=== PATIENT | female | born 1940 | race Caucasian/White ===

== ENCOUNTER → 2016-11-03 | Outpatient (CLI) | payer MEDICARE ==
[~2016-11-03] MED LIST: ACET-76 PO; ANAS1TAB PO; CALC-79 PO; CARB15DR EACHEYE; LATA2.5D3 EACHEYE; MINE3.5O EACHEYE; MULT-516 PO; TIMO5DRO5 EACHEYE
== END | disposition home or self-care (01) ==
LOC: STAR 14:08
PROVIDERS: ATTEND Urology
DX: Z01.818 Encounter for other preprocedural examination (principal); C67.4 Malignant neoplasm of posterior wall of bladder; C50.112 Malignant neoplasm of central portion of left female breast; Z85.41 Personal history of malignant neoplasm of cervix uteri
CPT/HCPCS: 81001; 87086; 93005

== ENCOUNTER 2016-11-10 10:45 | Day surgery (SDC) | payer MEDICARE ==
[~2016-11-10] VITALS: Ht 154.9 cm; Wt 76.0 kg
[2016-11-10] MEDS ORDERED: LACTATED RINGERS 1,000 ML IV SCH (11:16)
[2016-11-10] MEDS ORDERED: LIDOCAINE 1%, 2ML SQ PRN (11:30)
[2016-11-10] MEDS ORDERED: FENTANYL PF 250 MCG/5ML ONE (13:43)
[2016-11-10] MEDS ORDERED: SODIUM CHLORIDE 0.9% INTVESIC ONE (14:00)
[2016-11-10] MEDS ORDERED: hydrALAzine 20 MG/ML, 1ML IV PRN (14:00)
[2016-11-10] MEDS ORDERED: MITOMYCIN INTVESIC ONE (14:00)
[2016-11-10] MEDS ORDERED: PROMETHAZINE 25 MG/ML, 1ML IV PRN (14:00)
[2016-11-10] MEDS ORDERED: ONDANSETRON 2MG/ML, 2ML IVPush PRN (14:00)
[2016-11-10] MEDS ORDERED: FENTANYL PF 100 MCG/2ML IV PRN (14:00)
[2016-11-10] MEDS ORDERED: LABETALOL 5MG/ML, 20ML IV PRN (14:00)
[2016-11-10] MEDS ORDERED: HYDROmorphone 1 MG/ML, 1ML IV PRN (14:00)
[2016-11-10] MEDS ORDERED: FENTANYL PF 100 MCG/2ML ONE (15:20)
[2016-11-10] MEDS ORDERED: PROPOFOL 10 MG/ML, 20ML ONE (15:39)
[2016-11-10] MEDS ORDERED: GLYCOPYRROLATE 0.2MG/1ML ONE (15:39)
[2016-11-10] MEDS ORDERED: ONDANSETRON 2MG/ML, 2ML ONE ×2 (15:39→16:21)
[2016-11-10] MEDS ORDERED: NEOSTIGMINE 1 MG/ML, 10ML ONE (15:39)
[2016-11-10] MEDS ORDERED: ROCURONIUM 10 MG/ML ONE (15:39)
== END 2016-11-10 19:15 ==
LOC: OUT 10:45
PROVIDERS: ATTEND Urology
DX: C67.4 Malignant neoplasm of posterior wall of bladder (principal); N32.89 Other specified disorders of bladder; Z88.5 Allergy status to narcotic agent; Z88.0 Allergy status to penicillin
CPT/HCPCS: 52224; 88305; 88341; 88342; J2405; J2704; J2710; J3010; J3490; J7120; J9280; G0461

== ENCOUNTER → 2017-01-07 | Outpatient (CLI) | payer MEDICARE | END | disposition home or self-care (01) | LOC: STAR 12:57 | PROVIDERS: ATTEND Urology | DX: Z02.9 Encounter for administrative examinations, unspecified (principal) ==

== ENCOUNTER 2017-01-15 14:58 | Day surgery (SDC) | payer MEDICARE ==
[~2017-01-15] VITALS: Ht 157.5 cm; Wt 74.6 kg
[2017-01-15 15:25] VITALS: BP 155/100
[2017-01-15] MEDS ORDERED: LACTATED RINGERS 1,000 ML IV SCH (15:28)
[2017-01-15] MEDS ORDERED: MIDAZOLAM 1 MG/ML, 2ML ONE (17:28)
[2017-01-15] MEDS ORDERED: FENTANYL PF 100 MCG/2ML ONE (17:29)
[2017-01-15 18:21] LABS: PATH.CAST-FLAG NOT PRESENT; SPERM-FLAG NOT PRESENT; SRC-FLAG NOT PRESENT; XTAL-FLAG NOT PRESENT; YLC-FLAG NOT PRESENT
[2017-01-15] MEDS ORDERED: ONDANSETRON 2MG/ML, 2ML ONE (18:29)
[2017-01-15] MEDS ORDERED: METOCLOPRAMIDE 5 MG/ML, 2ML ONE (18:29)
[2017-01-15] MEDS ORDERED: PROPOFOL 10 MG/ML, 20ML ONE (18:29)
[2017-01-15] MEDS ORDERED: DEXAMETHASONE 4 MG/ML, 1ML ONE (18:29)
[2017-01-15] MEDS ORDERED: hydrALAzine 20 MG/ML, 1ML IV PRN (19:00)
[2017-01-15] MEDS ORDERED: ACETAMINOPHEN 325 MG TABLET PO PRN (19:00)
[2017-01-15] MEDS ORDERED: MIDAZOLAM 1 MG/ML, 2ML IV PRN (19:00)
[2017-01-15] MEDS ORDERED: LABETALOL 5MG/ML, 20ML IV PRN (19:00)
[2017-01-15] MEDS ORDERED: ONDANSETRON 2MG/ML, 2ML IVPush PRN (19:00)
[2017-01-15] MEDS ORDERED: ALBUTEROL/IPRATROPIUM 2.5MG/0.5MG, 3 ML NPPB PRN (19:00)
[2017-01-15] MEDS ORDERED: MEPERIDINE/PF 25MG/0.5ML IVPush PRN (19:00)
[2017-01-15] MEDS ORDERED: HYDROmorphone 1 MG/ML, 1ML IV PRN (19:00)
[2017-01-15] MEDS ORDERED: FENTANYL PF 100 MCG/2ML IV PRN (19:00)
[2017-01-15] MEDS ORDERED: PROMETHAZINE 25 MG/ML, 1ML IV PRN (19:00)
[2017-01-15] MEDS ORDERED: OPIUM/BELLADONNA SUPP.RECT 16.2-30 MG ONE (19:26)
[2017-01-15] MEDS ORDERED: CEFU250S PO (21:54)
[2017-01-15] MEDS ORDERED: OXYB5TAB33 PO (21:55)
[2017-01-15] MEDS ORDERED: PHEN100T90 PO (21:56)
== END 2017-01-15 23:00 | disposition home or self-care (01) ==
LOC: OR 14:58 → 4NOR 21:00 → OR 23:00
PROVIDERS: ATTEND Urology
DX: D09.0 Carcinoma in situ of bladder (principal); N30.20 Other chronic cystitis without hematuria; Z88.5 Allergy status to narcotic agent; Z88.0 Allergy status to penicillin; Z88.8 Allergy status to other drugs, medicaments and biological substances
CPT/HCPCS: 52235; 81001; 87086; 88305; C1769; J1100; J2250; J2405; J2704; J2765; J3010; J7120

== ENCOUNTER → 2017-04-21 | Outpatient (CLI) | payer MEDICARE ==
[~2017-04-21] MED LIST changes: +ACET500T71 PO; +CEFU250S PO; +CELE200C PO; +GABA300C10 PO; +OXYB5TAB33 PO; +PHEN100T90 PO
== END | disposition home or self-care (01) ==
LOC: WOUND 13:23
PROVIDERS: ATTEND Internal Medicine
DX: C67.4 Malignant neoplasm of posterior wall of bladder (principal); R31.9 Hematuria, unspecified; I25.10 Atherosclerotic heart disease of native coronary artery without angina pectoris; K21.9 Gastro-esophageal reflux disease without esophagitis; M19.90 Unspecified osteoarthritis, unspecified site; E11.65 Type 2 diabetes mellitus with hyperglycemia; Z85.3 Personal history of malignant neoplasm of breast; Z85.42 Personal history of malignant neoplasm of other parts of uterus
CPT/HCPCS: G0463; WOU0463

== ENCOUNTER 2017-04-22 05:35 | Inpatient (IN) | payer MEDICARE ==
[~2017-04-22] VITALS: Ht 154.9 cm; Wt 77.2 kg
[~2017-04-22 05:35] MED LIST changes: -ACET500T71 PO; -CELE200C PO; -GABA300C10 PO
[2017-04-22 06:03] VITALS: BP 165/103
[2017-04-22] MEDS ORDERED: LACTATED RINGERS 1,000 ML IV SCH (06:07)
[2017-04-22] MEDS ORDERED: THROMBIN 5,000 UNIT VIAL TP ONE (06:57)
[2017-04-22] MEDS ORDERED: EPINEPHRINE 1 MG/ML, 1ML ONE (06:57)
[2017-04-22] MEDS ORDERED: BUPIVACAINE/PF 0.25% ONE (06:57)
[2017-04-22] MEDS ORDERED: FENTANYL PF 250 MCG/5ML ONE ×3 (07:03→13:48)
[2017-04-22] MEDS ORDERED: MIDAZOLAM 1 MG/ML, 2ML ONE (07:03)
[2017-04-22 07:08] LABS: BASOPHILS # (AUTO) 0.01 x10^3/uL (0-0.1); BASOPHILS % (AUTO) 0 % (0-1); EOSINOPHILS # (AUTO) 0.05 x10^3/uL (0-0.4); EOSINOPHILS % (AUTO) 1 % (1-7); LYMPHOCYTES # (AUTO) 1.55 x10^3/uL (1-3.4); LYMPHOCYTES % (AUTO) 19 % (22-44); MD NO; MEAN CORPUSCULAR HEMOGLOBIN 30.1 pg (27.0-34.8); MEAN CORPUSCULAR HGB CONC 33.5 g/dL (32.4-35.8); MEAN CORPUSCULAR VOLUME 89.9 fL (80-100); MEAN PLATELET VOLUME 6.9 fL (7.4-10.4); MONOCYTES # (AUTO) 0.69 x10^3/uL (0.2-0.8); MONOCYTES % (AUTO) 9 % (2-9); NEUTROPHILS # (AUTO) 5.88 x10^3/uL (1.8-6.8); NEUTROPHILS % (AUTO) 72 % (42-75); PLATELET COUNT 293 x10^3/uL (130-400); RED CELL DISTRIBUTION WIDTH 14.7 % (9.6-15.2)
[2017-04-22 07:17] LABS: ALANINE AMINOTRANSFERASE 35 U/L (12-78); ALBUMIN 3.6 g/dL (3.4-5.0); ANION GAP 9 mmol/L (5-15); CALCIUM 9.7 mg/dL (8.5-10.1); CHLORIDE 101 mmol/L (98-107)
[2017-04-22 07:19] LABS: ALKALINE PHOSPHATASE 125 U/L (45-117); BILIRUBIN,TOTAL 0.7 mg/dL (0.2-1.0); TOTAL PROTEIN 7.1 g/dL (6.4-8.2)
[2017-04-22 07:20] LABS: MICROSCOPIC INDICATED
[2017-04-22] MEDS ORDERED: PHENYLEPHRINE 10 MG/ML ONE (07:46)
[2017-04-22] MEDS ORDERED: CEFOTETAN PMX 2GM/50ML 50 ML ONE (08:31)
[2017-04-22] MEDS ORDERED: DEXAMETHASONE 4 MG/ML, 1ML ONE (09:37)
[2017-04-22] MEDS ORDERED: GLYCOPYRROLATE 0.2MG/1ML, 5ML ONE (09:37)
[2017-04-22] MEDS ORDERED: ROCURONIUM 10 MG/ML,10ML ONE (09:37)
[2017-04-22] MEDS ORDERED: LABETALOL 5MG/ML, 20ML ONE ×2 (09:37)
[2017-04-22] MEDS ORDERED: PROPOFOL 10 MG/ML, 20ML ONE (09:37)
[2017-04-22] MEDS ORDERED: hydrALAzine 20 MG/ML, 1ML ONE (09:37)
[2017-04-22] MEDS ORDERED: ONDANSETRON 2MG/ML, 2ML ONE ×2 (09:37→23:18)
[2017-04-22] MEDS ORDERED: NEOSTIGMINE 1 MG/ML, 10ML ONE (09:37)
[2017-04-22] MEDS ORDERED: HEPARIN 5,000 UNITS/ML, 1ML ONE (15:18)
[2017-04-22] MEDS ORDERED: CEFOTETAN PMX 1GM/50ML 50 ML ONE (15:23)
[2017-04-22] MEDS ORDERED: DIAZEPAM 5 MG/ML, 2ML IVPush PRN (16:00)
[2017-04-22] MEDS ORDERED: OXYcodone 5 MG/5 ML ORAL.SOL UDC PO PRN (16:00)
[2017-04-22] MEDS ORDERED: MIDAZOLAM 1 MG/ML, 2ML IV PRN (16:00)
[2017-04-22] MEDS ORDERED: LABETALOL 5MG/ML, 20ML IV PRN (16:00)
[2017-04-22] MEDS ORDERED: FENTANYL PF 100 MCG/2ML IV PRN (16:00)
[2017-04-22] MEDS ORDERED: hydrALAzine 20 MG/ML, 1ML IV PRN (16:00)
[2017-04-22] MEDS ORDERED: HYDROmorphone 1 MG/ML, 1ML IV PRN (16:00)
[2017-04-22] MEDS ORDERED: LORazepam 2 MG/ML, 1ML IVPush PRN (16:00)
[2017-04-22] MEDS ORDERED: METOCLOPRAMIDE 5 MG/ML, 2ML IV PRN (16:00)
[2017-04-22] MEDS ORDERED: MEPERIDINE/PF 25MG/0.5ML IVPush PRN (16:00)
[2017-04-22] MEDS ORDERED: ALBUTEROL/IPRATROPIUM 2.5MG/0.5MG, 3 ML NPPB PRN (16:00)
[2017-04-22] MEDS ORDERED: ONDANSETRON 2MG/ML, 2ML IVPush PRN (16:00)
[2017-04-22] MEDS ORDERED: PROMETHAZINE 25 MG/ML, 1ML IV PRN (16:00)
[2017-04-22] MEDS ORDERED: ACETAMINOPHEN 325 MG TABLET PO PRN (16:00)
[2017-04-22] MEDS ORDERED: FUROSEMIDE 20 MG/2 ML ONE (17:10)
[2017-04-22] MEDS: HEPARIN 5,000 UNITS/ML, 1ML SQ SCH (20:00)
[2017-04-22] MEDS ORDERED: HYDROmorphone PCA 30 MG/30 ML ONE (20:45)
[2017-04-22] MEDS ORDERED: HYDROmorphone PCA 30 MG/30 ML IV PRN (21:00)
[2017-04-22 21:38] LABS: ALBUMIN 3.4 g/dL (3.4-5.0); ANION GAP 10 mmol/L (5-15); CALCIUM 8.1 mg/dL (8.5-10.1); CHLORIDE 111 mmol/L (98-107); CREATININE 1.38 mg/dL (0.55-1.02)
[2017-04-22] MEDS ORDERED: PROMETHAZINE 25 MG/ML, 1ML IM PRN (22:00)
[2017-04-22] MEDS ORDERED: INSULIN ASPART 100 UNITS/ML, 3ML PEN LOW DOSE SS SQ-INSULIN SCH (22:00)
[2017-04-22] MEDS ORDERED: ONDANSETRON 4 MG TABLET PO PRN (22:00)
[2017-04-22] MEDS ORDERED: CEFOXITIN PMX 1GM/50ML 50 ML IVPB SCH (22:00)
[2017-04-22] MEDS: ACETAMINOPHEN 500 MG TABLET PO SCH (22:00)
[2017-04-22] MEDS: INSULIN REGULAR 100 UNITS/ML, 3ML VIAL SQ-INSULIN SCH (22:00)
[2017-04-22] MEDS: LACTATED RINGERS 1,000 ML IV SCH (22:07)
[2017-04-22] MEDS: CEFOXITIN 1,000 MG in DEXTROSE 5% 50 ML IVPB SCH (22:07)
[2017-04-22] MEDS: ONDANSETRON 2MG/ML, 2ML IVPush PRN (23:20)
[2017-04-23] MEDS ORDERED: hydrALAzine 20 MG/ML, 1ML ONE (00:02)
[2017-04-23] MEDS: INSULIN REGULAR 100 UNITS/ML, 3ML VIAL SQ-INSULIN SCH ×4 (04:00→22:00)
[2017-04-23] MEDS: ACETAMINOPHEN 500 MG TABLET PO SCH ×4 (04:30→23:03)
[2017-04-23] MEDS: HEPARIN 5,000 UNITS/ML, 1ML SQ SCH ×4 (04:31→23:00)
[2017-04-23] MEDS: LACTATED RINGERS 1,000 ML IV SCH ×2 (04:37→23:03)
[2017-04-23] MEDS: CEFOXITIN 1,000 MG in DEXTROSE 5% 50 ML IVPB SCH ×3 (06:12→23:22)
[2017-04-23 07:19] LABS: ALANINE AMINOTRANSFERASE 24 U/L (12-78); ANION GAP 10 mmol/L (5-15); CALCIUM 8.3 mg/dL (8.5-10.1); CHLORIDE 110 mmol/L (98-107); CREATININE 1.32 mg/dL (0.55-1.02)
[2017-04-23 07:21] LABS: ALKALINE PHOSPHATASE 81 U/L (45-117); BILIRUBIN,TOTAL 0.4 mg/dL (0.2-1.0); TOTAL PROTEIN 5.9 g/dL (6.4-8.2)
[2017-04-23 07:28] LABS: HEMOGRAM NOTE RECHECKED; MEAN CORPUSCULAR HEMOGLOBIN 30.1 pg (27.0-34.8); MEAN CORPUSCULAR HGB CONC 33.5 g/dL (32.4-35.8); MEAN CORPUSCULAR VOLUME 89.9 fL (80-100); PLATELET COUNT 240 x10^3/uL (130-400); RED BLOOD COUNT 3.61 x10^6/uL (3.82-5.3)
[2017-04-23 07:58] LABS: INTERNATIONAL NORMALIZED RATIO 1.09 (0.93-1.1); PROTHROMBIN TIME 11.2 Seconds (9.6-11.5)
[2017-04-23 08:55] LABS: MD YES
[2017-04-23 08:56] LABS: BAND#(MANUAL) 0.69 x10^3/uL; BANDS%(MANUAL) 5 % (0-7); LYMPH#(MANUAL) 0.69 x10^3/uL (1-3.4); LYMPHS% (MANUAL) 5 % (22-44); MONOS#(MANUAL) 0.55 x10^3/uL (0.3-2.7); MONOS% (MANUAL) 4 % (2-9); SEG#(MANUAL) 11.78 x10^3/uL (1.8-6.8); SEGS% (MANUAL) 86 % (42-75)
[2017-04-23] MEDS: ONDANSETRON 2MG/ML, 2ML IVPush PRN ×3 (08:56→23:22)
[2017-04-23 08:57] LABS: <PLATELET ESTIMATE> ADEQUATE; <PLT MORPHOLOGY> NORMAL PLT MORPH; <RBC MORPHOLOGY> NORMAL
[2017-04-23] MEDS ORDERED: TIMOLOL OPHTH 0.25%, 5ML OP SCH (09:00)
[2017-04-23] MEDS ORDERED: MAGNESIUM SULFATE PMX 4GM/100M 100 ML IVPB ONE (11:00)
[2017-04-23 12:23] LABS: TROPONIN I 0.043 ng/mL (0.000-0.045)
[2017-04-23] MEDS ORDERED: SODIUM CHLORIDE 0.9%, 500ML IVBOLUS ONE (14:00)
[2017-04-23] MEDS ORDERED: HYDROmorphone 2 MG/ML, 1ML IVPush PRN (15:00)
[2017-04-23 20:10] VITALS: BP 130/79
[2017-04-23] MEDS: OCULAR LUBRICANT OPHTH OINT 3.5 GM OP SCH (21:00)
[2017-04-23] MEDS: LATANOPROST OPHTH 0.005%, 2.5ML OP SCH (21:00)
[2017-04-23] MEDS ORDERED: LACTATED RINGERS 1,000 ML IV SCH (22:00)
[2017-04-24 01:46] VITALS: BP 143/83
[2017-04-24] MEDS: INSULIN REGULAR 100 UNITS/ML, 3ML VIAL SQ-INSULIN SCH ×4 (04:00→21:21)
[2017-04-24 05:38] LABS: BASOPHILS # (AUTO) 0.04 x10^3/uL (0-0.1); BASOPHILS % (AUTO) 0 % (0-1); EOSINOPHILS # (AUTO) 0.01 x10^3/uL (0-0.4); EOSINOPHILS % (AUTO) 0 % (1-7); LYMPHOCYTES # (AUTO) 0.97 x10^3/uL (1-3.4); LYMPHOCYTES % (AUTO) 8 % (22-44); MD NO; MEAN CORPUSCULAR HEMOGLOBIN 30.6 pg (27.0-34.8); MEAN CORPUSCULAR HGB CONC 33.8 g/dL (32.4-35.8); MEAN CORPUSCULAR VOLUME 90.5 fL (80-100); MEAN PLATELET VOLUME 7.3 fL (7.4-10.4); MONOCYTES # (AUTO) 0.98 x10^3/uL (0.2-0.8); MONOCYTES % (AUTO) 8 % (2-9); NEUTROPHILS # (AUTO) 10.73 x10^3/uL (1.8-6.8); NEUTROPHILS % (AUTO) 84 % (42-75); PLATELET COUNT 210 x10^3/uL (130-400); RED BLOOD COUNT 3.32 x10^6/uL (3.82-5.3); RED CELL DISTRIBUTION WIDTH 15.8 % (9.6-15.2)
[2017-04-24 05:48] LABS: ALBUMIN 2.6 g/dL (3.4-5.0); ANION GAP 5 mmol/L (5-15); CALCIUM 8.3 mg/dL (8.5-10.1); CHLORIDE 111 mmol/L (98-107)
[2017-04-24 05:51] LABS: ALANINE AMINOTRANSFERASE 19 U/L (12-78); ALKALINE PHOSPHATASE 71 U/L (45-117); BILIRUBIN,TOTAL 0.5 mg/dL (0.2-1.0); CREATININE 0.61 mg/dL (0.55-1.02); TOTAL PROTEIN 5.4 g/dL (6.4-8.2)
[2017-04-24 05:52] LABS: HEMOGLOBIN A1C 6.1 % (4.2-6.3)
[2017-04-24] MEDS: HEPARIN 5,000 UNITS/ML, 1ML SQ SCH ×3 (05:57→21:20)
[2017-04-24] MEDS: CEFOXITIN 1,000 MG in DEXTROSE 5% 50 ML IVPB SCH (05:57)
[2017-04-24] MEDS: ACETAMINOPHEN 500 MG TABLET PO SCH ×3 (05:57→17:32)
[2017-04-24] MEDS: LACTATED RINGERS 1,000 ML IV SCH ×3 (05:58→17:32)
[2017-04-24 07:41] VITALS: BP 147/88
[2017-04-24] MEDS: PANTOPRAZOLE 40 MG IV IVPush SCH (09:52)
[2017-04-24] MEDS: TIMOLOL OPHTH 0.5%, 5ML EACHEYE SCH (09:52)
[2017-04-24 13:34] VITALS: BP 160/94
[2017-04-24] MEDS: ONDANSETRON 2MG/ML, 2ML IVPush PRN (16:47)
[2017-04-24 18:09] LABS: TROPONIN I 0.028 ng/mL (0.000-0.045)
[2017-04-24] MEDS ORDERED: hydrALAzine 20 MG/ML, 1ML IV PRN (21:00)
[2017-04-24 21:01] VITALS: BP 186/116
[2017-04-24] MEDS: LATANOPROST OPHTH 0.005%, 2.5ML OP SCH (21:05)
[2017-04-24] MEDS: OCULAR LUBRICANT OPHTH OINT 3.5 GM OP SCH (21:05)
[2017-04-24 21:24] VITALS: BP 159/82
[2017-04-24] MEDS ORDERED: LACTATED RINGERS 1,000 ML IV SCH (22:00)
[2017-04-25] MEDS: ONDANSETRON 2MG/ML, 2ML IVPush PRN (00:09)
[2017-04-25] MEDS: ACETAMINOPHEN 500 MG TABLET PO SCH ×4 (00:09→17:53)
[2017-04-25 01:32] VITALS: BP 152/91
[2017-04-25] MEDS: INSULIN REGULAR 100 UNITS/ML, 3ML VIAL SQ-INSULIN SCH ×4 (04:00→21:38)
[2017-04-25 04:59] LABS: BASOPHILS # (AUTO) 0.03 x10^3/uL (0-0.1); BASOPHILS % (AUTO) 0 % (0-1); EOSINOPHILS # (AUTO) 0.03 x10^3/uL (0-0.4); EOSINOPHILS % (AUTO) 0 % (1-7); LYMPHOCYTES # (AUTO) 1.08 x10^3/uL (1-3.4); LYMPHOCYTES % (AUTO) 9 % (22-44); MD NO; MEAN CORPUSCULAR HEMOGLOBIN 30.4 pg (27.0-34.8); MEAN CORPUSCULAR HGB CONC 33.4 g/dL (32.4-35.8); MEAN PLATELET VOLUME 7.1 fL (7.4-10.4); MONOCYTES # (AUTO) 0.53 x10^3/uL (0.2-0.8); MONOCYTES % (AUTO) 4 % (2-9); NEUTROPHILS % (AUTO) 86 % (42-75); PLATELET COUNT 225 x10^3/uL (130-400); RED BLOOD COUNT 3.63 x10^6/uL (3.82-5.3); RED CELL DISTRIBUTION WIDTH 15.4 % (9.6-15.2)
[2017-04-25 05:09] LABS: ANION GAP 5 mmol/L (5-15); CALCIUM 8.6 mg/dL (8.5-10.1); CHLORIDE 110 mmol/L (98-107)
[2017-04-25 05:11] LABS: CREATININE 0.41 mg/dL (0.55-1.02)
[2017-04-25] MEDS: HEPARIN 5,000 UNITS/ML, 1ML SQ SCH ×3 (06:17→21:33)
[2017-04-25] MEDS: D5%-0.45NACL+KCL 20MEQ 1,000 ML IV SCH ×2 (09:02→21:33)
[2017-04-25] MEDS: METOCLOPRAMIDE 5 MG/ML, 2ML IVPush SCH ×2 (09:02→16:30)
[2017-04-25] MEDS: PANTOPRAZOLE 40 MG IV IVPush SCH (09:02)
[2017-04-25] MEDS: TIMOLOL OPHTH 0.5%, 5ML EACHEYE SCH (09:03)
[2017-04-25 09:17] VITALS: BP 148/86
[2017-04-25 10:42] VITALS: BP 144/86
[2017-04-25 16:07] VITALS: BP 138/85
[2017-04-25 19:52] VITALS: BP 119/75
[2017-04-25] MEDS: LATANOPROST OPHTH 0.005%, 2.5ML OP SCH ×2 (21:33→21:41)
[2017-04-25] MEDS: OCULAR LUBRICANT OPHTH OINT 3.5 GM OP SCH (21:33)
[2017-04-25] MEDS: GABAPENTIN 300 MG CAPSULE PO SCH (21:33)
[2017-04-26] MEDS: ACETAMINOPHEN 500 MG TABLET PO SCH ×4 (01:06→17:42)
[2017-04-26] MEDS: METOCLOPRAMIDE 5 MG/ML, 2ML IVPush SCH ×3 (01:07→16:15)
[2017-04-26] MEDS: INSULIN REGULAR 100 UNITS/ML, 3ML VIAL SQ-INSULIN SCH ×4 (04:00→22:00)
[2017-04-26 04:20] VITALS: BP 110/73
[2017-04-26 06:08] LABS: CHLORIDE 111 mmol/L (98-107)
[2017-04-26 06:15] LABS: ALANINE AMINOTRANSFERASE 15 U/L (12-78); ALKALINE PHOSPHATASE 66 U/L (45-117); ANION GAP 4 mmol/L (5-15); BILIRUBIN,TOTAL 0.7 mg/dL (0.2-1.0); CALCIUM 8.6 mg/dL (8.5-10.1); CREATININE 0.44 mg/dL (0.55-1.02); TOTAL PROTEIN 4.8 g/dL (6.4-8.2)
[2017-04-26 06:28] LABS: BASOPHILS # (AUTO) 0.03 x10^3/uL (0-0.1); BASOPHILS % (AUTO) 0 % (0-1); EOSINOPHILS # (AUTO) 0.43 x10^3/uL (0-0.4); EOSINOPHILS % (AUTO) 6 % (1-7); LYMPHOCYTES # (AUTO) 1.01 x10^3/uL (1-3.4); LYMPHOCYTES % (AUTO) 13 % (22-44); MD NO; MEAN CORPUSCULAR HGB CONC 33.1 g/dL (32.4-35.8); MEAN CORPUSCULAR VOLUME 90.6 fL (80-100); MEAN PLATELET VOLUME 7.4 fL (7.4-10.4); MONOCYTES # (AUTO) 0.62 x10^3/uL (0.2-0.8); MONOCYTES % (AUTO) 8 % (2-9); NEUTROPHILS # (AUTO) 5.73 x10^3/uL (1.8-6.8); NEUTROPHILS % (AUTO) 73 % (42-75); PLATELET COUNT 231 x10^3/uL (130-400); RED BLOOD COUNT 3.17 x10^6/uL (3.82-5.3); RED CELL DISTRIBUTION WIDTH 15.5 % (9.6-15.2)
[2017-04-26] MEDS: HEPARIN 5,000 UNITS/ML, 1ML SQ SCH ×3 (06:29→21:56)
[2017-04-26] MEDS: TIMOLOL OPHTH 0.5%, 5ML EACHEYE SCH (08:34)
[2017-04-26] MEDS: PANTOPRAZOLE 40 MG IV IVPush SCH (08:35)
[2017-04-26] MEDS: D5%-0.45NACL+KCL 20MEQ 1,000 ML IV SCH (09:49)
[2017-04-26 19:56] VITALS: BP 145/83
[2017-04-26] MEDS: LATANOPROST OPHTH 0.005%, 2.5ML OP SCH (21:55)
[2017-04-26] MEDS: GABAPENTIN 300 MG CAPSULE PO SCH (21:56)
[2017-04-26] MEDS: OCULAR LUBRICANT OPHTH OINT 3.5 GM OP SCH (21:57)
[2017-04-27] MEDS: ARTIFICIAL TEARS OPHTH SOLN 15ML OP PRN ×2 (00:23→22:14)
[2017-04-27] MEDS: ACETAMINOPHEN 500 MG TABLET PO SCH ×4 (00:23→22:14)
[2017-04-27] MEDS: METOCLOPRAMIDE 5 MG/ML, 2ML IVPush SCH ×3 (00:24→17:49)
[2017-04-27] MEDS: D5%-0.45NACL+KCL 20MEQ 1,000 ML IV SCH ×2 (00:48→15:54)
[2017-04-27] MEDS: INSULIN REGULAR 100 UNITS/ML, 3ML VIAL SQ-INSULIN SCH ×4 (04:20→22:00)
[2017-04-27 05:03] LABS: BASOPHILS # (AUTO) 0.03 x10^3/uL (0-0.1); BASOPHILS % (AUTO) 0 % (0-1); EOSINOPHILS # (AUTO) 0.38 x10^3/uL (0-0.4); EOSINOPHILS % (AUTO) 5 % (1-7); LYMPHOCYTES # (AUTO) 1.04 x10^3/uL (1-3.4); LYMPHOCYTES % (AUTO) 14 % (22-44); MD NO; MEAN CORPUSCULAR HEMOGLOBIN 30.9 pg (27.0-34.8); MEAN CORPUSCULAR VOLUME 90.8 fL (80-100); MEAN PLATELET VOLUME 7.4 fL (7.4-10.4); MONOCYTES # (AUTO) 0.66 x10^3/uL (0.2-0.8); MONOCYTES % (AUTO) 9 % (2-9); NEUTROPHILS # (AUTO) 5.27 x10^3/uL (1.8-6.8); NEUTROPHILS % (AUTO) 72 % (42-75); PLATELET COUNT 246 x10^3/uL (130-400); RED BLOOD COUNT 3.35 x10^6/uL (3.82-5.3); RED CELL DISTRIBUTION WIDTH 15.6 % (9.6-15.2)
[2017-04-27 05:04] LABS: ANION GAP 6 mmol/L (5-15); CALCIUM 8.1 mg/dL (8.5-10.1); CHLORIDE 111 mmol/L (98-107); CREATININE 0.36 mg/dL (0.55-1.02)
[2017-04-27] MEDS: HEPARIN 5,000 UNITS/ML, 1ML SQ SCH ×3 (06:18→22:16)
[2017-04-27 08:48] VITALS: BP 134/83
[2017-04-27] MEDS: PANTOPRAZOLE 40 MG IV IVPush SCH (08:58)
[2017-04-27] MEDS: TIMOLOL OPHTH 0.5%, 5ML EACHEYE SCH (08:59)
[2017-04-27 15:43] VITALS: BP 147/99
[2017-04-27 20:25] VITALS: BP 119/75
[2017-04-27] MEDS: OCULAR LUBRICANT OPHTH OINT 3.5 GM OP SCH (21:00)
[2017-04-27] MEDS: LATANOPROST OPHTH 0.005%, 2.5ML OP SCH (22:15)
[2017-04-27] MEDS: GABAPENTIN 300 MG CAPSULE PO SCH (22:15)
[2017-04-28] MEDS: METOCLOPRAMIDE 5 MG/ML, 2ML IVPush SCH ×3 (01:31→16:29)
[2017-04-28] MEDS: ACETAMINOPHEN 500 MG TABLET PO SCH ×4 (01:36→19:37)
[2017-04-28 02:45] VITALS: BP 109/71
[2017-04-28] MEDS: D5%-0.45NACL+KCL 20MEQ 1,000 ML IV SCH (04:18)
[2017-04-28] MEDS: INSULIN REGULAR 100 UNITS/ML, 3ML VIAL SQ-INSULIN SCH ×4 (04:23→21:38)
[2017-04-28 05:23] LABS: BASOPHILS # (AUTO) 0.02 x10^3/uL (0-0.1); BASOPHILS % (AUTO) 0 % (0-1); EOSINOPHILS # (AUTO) 0.37 x10^3/uL (0-0.4); EOSINOPHILS % (AUTO) 6 % (1-7); LYMPHOCYTES # (AUTO) 0.97 x10^3/uL (1-3.4); LYMPHOCYTES % (AUTO) 15 % (22-44); MD NO; MEAN CORPUSCULAR HEMOGLOBIN 30.5 pg (27.0-34.8); MEAN CORPUSCULAR HGB CONC 33.8 g/dL (32.4-35.8); MEAN CORPUSCULAR VOLUME 90.4 fL (80-100); MONOCYTES # (AUTO) 0.65 x10^3/uL (0.2-0.8); MONOCYTES % (AUTO) 10 % (2-9); NEUTROPHILS # (AUTO) 4.46 x10^3/uL (1.8-6.8); NEUTROPHILS % (AUTO) 69 % (42-75); PLATELET COUNT 255 x10^3/uL (130-400); RED BLOOD COUNT 3.32 x10^6/uL (3.82-5.3); RED CELL DISTRIBUTION WIDTH 15.3 % (9.6-15.2)
[2017-04-28 05:30] LABS: CHLORIDE 109 mmol/L (98-107)
[2017-04-28 05:38] LABS: ANION GAP 5 mmol/L (5-15); CALCIUM 8.2 mg/dL (8.5-10.1); CREATININE 0.42 mg/dL (0.55-1.02)
[2017-04-28] MEDS: HEPARIN 5,000 UNITS/ML, 1ML SQ SCH ×3 (05:48→21:38)
[2017-04-28] MEDS: PANTOPRAZOLE 40 MG IV IVPush SCH (08:04)
[2017-04-28] MEDS: TIMOLOL OPHTH 0.5%, 5ML EACHEYE SCH (08:55)
[2017-04-28 10:24] VITALS: BP 119/74
[2017-04-28 13:00] VITALS: BP 112/75
[2017-04-28] MEDS: OCULAR LUBRICANT OPHTH OINT 3.5 GM OP SCH (20:15)
[2017-04-28] MEDS: GABAPENTIN 300 MG CAPSULE PO SCH (20:18)
[2017-04-28] MEDS: LATANOPROST OPHTH 0.005%, 2.5ML OP SCH (20:18)
[2017-04-28 20:36] VITALS: BP 147/87
[2017-04-29] MEDS: ACETAMINOPHEN 500 MG TABLET PO SCH ×3 (01:32→14:52)
[2017-04-29] MEDS: METOCLOPRAMIDE 5 MG/ML, 2ML IVPush SCH ×3 (01:32→17:00)
[2017-04-29 02:49] VITALS: BP 116/75
[2017-04-29] MEDS: INSULIN REGULAR 100 UNITS/ML, 3ML VIAL SQ-INSULIN SCH (04:00)
[2017-04-29] MEDS: HEPARIN 5,000 UNITS/ML, 1ML SQ SCH ×2 (04:54→14:52)
[2017-04-29 07:54] VITALS: BP 145/85
[2017-04-29] MEDS: PANTOPRAZOLE 40 MG IV IVPush SCH (09:08)
[2017-04-29] MEDS: TIMOLOL OPHTH 0.5%, 5ML EACHEYE SCH (09:08)
[2017-04-29] MEDS ORDERED: ACET500T71 PO (09:47)
[2017-04-29] MEDS ORDERED: CELE200C PO (09:47)
[2017-04-29] MEDS ORDERED: GABA300C10 PO (09:47)
[2017-04-29] MEDS: ONDANSETRON 2MG/ML, 2ML IVPush PRN (10:21)
[2017-04-29 11:03] LABS: RAPID INFLUENZA A Negative (Negative); RAPID INFLUENZA B Negative (Negative)
[2017-04-29 14:14] VITALS: BP 112/71
[2017-04-29 18:00] VITALS: BP 112/70
== END 2017-04-29 18:40 | DRG 654 ==
LOC: ORIP 05:35 → EDSTATUS 07:30 → ICU 21:03 → 4NOR 04-23 15:19
PROVIDERS: ADMIT Urology; ATTEND Urology
PROC: 0TTB4ZZ Resection of Bladder, Percutaneous Endoscopic Approach (ICD-10-PCS; 2017-04-22)
PROC: 07TC4ZZ Resection of Pelvis Lymphatic, Percutaneous Endoscopic Approach (ICD-10-PCS; 2017-04-22)
PROC: 0T184ZC Bypass Bilateral Ureters to Ileocutaneous, Percutaneous Endoscopic Approach (ICD-10-PCS; 2017-04-22)
PROC: 0TT Urinary System, Resection (ICD-10-PCS; 2017-04-22)
PROC: 8E0W4CZ Robotic Assisted Procedure of Trunk Region, Percutaneous Endoscopic Approach (ICD-10-PCS; 2017-04-22)
PROC: 0T784DZ Dilation of Bilateral Ureters with Intraluminal Device, Percutaneous Endoscopic Approach (ICD-10-PCS; 2017-04-22)
PROC: 0UT24ZZ Resection of Bilateral Ovaries, Percutaneous Endoscopic Approach (ICD-10-PCS; principal; 2017-04-22 07:30)
DX: C67.9 Malignant neoplasm of bladder, unspecified (principal); N17.9 Acute kidney failure, unspecified; E11.65 Type 2 diabetes mellitus with hyperglycemia; Z90.6 Acquired absence of other parts of urinary tract; D63.0 Anemia in neoplastic disease; D62 Acute posthemorrhagic anemia; E86.0 Dehydration; M19.90 Unspecified osteoarthritis, unspecified site; K21.9 Gastro-esophageal reflux disease without esophagitis; I25.10 Atherosclerotic heart disease of native coronary artery without angina pectoris; Z85.3 Personal history of malignant neoplasm of breast; Z79.899 Other long term (current) drug therapy; Z79.1 Long term (current) use of non-steroidal anti-inflammatories (NSAID); Z85.42 Personal history of malignant neoplasm of other parts of uterus; Z88.0 Allergy status to penicillin; Z88.8 Allergy status to other drugs, medicaments and biological substances; Z88.5 Allergy status to narcotic agent
CPT/HCPCS: 36415; 71010; 74000; 80048; 80053; 81001; 82040; 82330; 82570; 82962; 83036; 83735; 84100; 84484; 85014; 85018; 85025; 85610; 86850; 86900; 87081; 87400; 88305; 88309; 88331; 93005; C1729; J0171; J1100; J1170; J1644; J2250; J2405; J2550; J2704; J2710; J3010; J3490; C1760; C1769; C2617; C9113; J0360; J1940; J2370; J2765; J3475; J3480; J7040; J7120; S0074

== ENCOUNTER → 2017-05-07 | Outpatient (CLI) | payer MEDICARE ==
[~2017-05-07] MED LIST changes: +ACET500T71 PO; +CELE200C PO; +GABA300C10 PO
== END | disposition home or self-care (01) ==
LOC: WOUND 11:40
PROVIDERS: ATTEND Internal Medicine Cardiovascular Disease
DX: C67.4 Malignant neoplasm of posterior wall of bladder (principal); R31.9 Hematuria, unspecified; I25.10 Atherosclerotic heart disease of native coronary artery without angina pectoris; K21.9 Gastro-esophageal reflux disease without esophagitis; M19.90 Unspecified osteoarthritis, unspecified site; Z85.3 Personal history of malignant neoplasm of breast; Z85.42 Personal history of malignant neoplasm of other parts of uterus
CPT/HCPCS: G0463; WOU0463

== ENCOUNTER → 2017-05-11 | Outpatient (CLI) | payer MEDICARE | END | disposition home or self-care (01) | LOC: WOUND 13:32 | PROVIDERS: ATTEND Nurse Practitioner Family | DX: C67.1 Malignant neoplasm of dome of bladder (principal); R31.9 Hematuria, unspecified; I25.10 Atherosclerotic heart disease of native coronary artery without angina pectoris; K21.9 Gastro-esophageal reflux disease without esophagitis; E11.65 Type 2 diabetes mellitus with hyperglycemia; Z85.3 Personal history of malignant neoplasm of breast; Z85.42 Personal history of malignant neoplasm of other parts of uterus | CPT/HCPCS: G0463; WOU0463 ==

== ENCOUNTER → 2017-05-14 | Outpatient (CLI) | payer MEDICARE | LOC: WOUND 13:01 | PROVIDERS: ATTEND Family Medicine | DX: C67.4 Malignant neoplasm of posterior wall of bladder (principal); R31.9 Hematuria, unspecified; K21.9 Gastro-esophageal reflux disease without esophagitis; I25.10 Atherosclerotic heart disease of native coronary artery without angina pectoris; E11.65 Type 2 diabetes mellitus with hyperglycemia; M19.90 Unspecified osteoarthritis, unspecified site; Z85.3 Personal history of malignant neoplasm of breast; Z87.891 Personal history of nicotine dependence | CPT/HCPCS: G0463; WOU0463 ==

== ENCOUNTER → 2017-05-18 | Outpatient (CLI) | payer MEDICARE | END | disposition home or self-care (01) | LOC: WOUND 10:53 | PROVIDERS: ATTEND Nurse Practitioner Family | DX: C67.4 Malignant neoplasm of posterior wall of bladder (principal); R31.9 Hematuria, unspecified; K21.9 Gastro-esophageal reflux disease without esophagitis; E11.65 Type 2 diabetes mellitus with hyperglycemia; I25.10 Atherosclerotic heart disease of native coronary artery without angina pectoris; Z85.3 Personal history of malignant neoplasm of breast; Z87.891 Personal history of nicotine dependence; Z85.42 Personal history of malignant neoplasm of other parts of uterus | CPT/HCPCS: G0463; WOU0463 ==

== ENCOUNTER → 2017-05-21 | Outpatient (CLI) | payer MEDICARE | END | disposition home or self-care (01) | LOC: WOUND 10:59 | PROVIDERS: ATTEND Family Medicine | DX: C67.4 Malignant neoplasm of posterior wall of bladder (principal); R31.9 Hematuria, unspecified; K21.9 Gastro-esophageal reflux disease without esophagitis; I25.10 Atherosclerotic heart disease of native coronary artery without angina pectoris; M19.90 Unspecified osteoarthritis, unspecified site; Z85.3 Personal history of malignant neoplasm of breast; Z85.42 Personal history of malignant neoplasm of other parts of uterus; Z87.891 Personal history of nicotine dependence | CPT/HCPCS: G0463; WOU0463 ==